=== PATIENT | female | born 1970 | race Caucasian/White ===

== ENCOUNTER → 2023-10-11 08:24 | Outpatient (REF) | payer BC, SELFPAY | LOC: HWRAD 08:24 | PROVIDERS: ATTENDING PHYSICIAN Internal Medicine Rheumatology; FAMILY PHYSICIAN Internal Medicine | DX: M06.9 Rheumatoid arthritis, unspecified (principal) | CPT/HCPCS: 73110; 73130 ==

== ENCOUNTER → 2023-11-19 09:26 | Outpatient (REF) | payer BC, SELFPAY | LOC: HWRAD 09:26 | PROVIDERS: ATTENDING PHYSICIAN Internal Medicine Rheumatology; FAMILY PHYSICIAN Internal Medicine | DX: M25.561 Pain in right knee (principal); R05.9 Cough, unspecified | CPT/HCPCS: 71046; 73560 ==

== ENCOUNTER → 2024-02-10 06:40 | Day surgery (SDC) | payer BC, SELFPAY | LOC: GI 06:40 | PROVIDERS: ATTENDING PHYSICIAN Internal Medicine | DX: R19.7 Diarrhea, unspecified (principal); D12.6 Benign neoplasm of colon, unspecified; K22.4 Dyskinesia of esophagus; K44.9 Diaphragmatic hernia without obstruction or gangrene; R13.14 Dysphagia, pharyngoesophageal phase | CPT/HCPCS: 45380; 43239; 88305 ==

== ENCOUNTER → 2024-02-14 08:09 | Outpatient (REF) | payer BC, SELFPAY | LOC: HWRAD 08:09 | PROVIDERS: ATTENDING PHYSICIAN Internal Medicine Rheumatology; FAMILY PHYSICIAN Internal Medicine | DX: M54.2 Cervicalgia (principal) | CPT/HCPCS: 72052 ==

== ENCOUNTER 2024-04-06 06:29 | Day surgery (SDC) | payer BC, SELFPAY ==
[2024-04-06 11:45] VITALS: BP 115/77; BMI 21.2
[2024-04-06 12:05] VITALS: BMI 21.2
[2024-04-06 15:16] VITALS: BP 91/67
[2024-04-06 15:30] VITALS: BP 118/82
[2024-04-06 15:46] VITALS: BP 108/78
== END 2024-04-06 16:00 | disposition home or self-care (01) ==
LOC: GI 06:29
PROVIDERS: ATTENDING PHYSICIAN Internal Medicine Gastroenterology
DX: D12.7 Benign neoplasm of rectosigmoid junction (principal); K64.0 First degree hemorrhoids; D12.6 Benign neoplasm of colon, unspecified
CPT/HCPCS: 45349; 88305

== ENCOUNTER 2024-11-23 06:25 | Day surgery (SDC) | payer BC, SELFPAY | END 2024-11-23 15:08 | disposition home or self-care (01) | LOC: GI 06:25 | PROVIDERS: ATTENDING PHYSICIAN Internal Medicine | DX: Z12.11 Encounter for screening for malignant neoplasm of colon (principal); K63.89 Other specified diseases of intestine; Z86.0101 Personal history of adenomatous and serrated colon polyps; Z98.890 Other specified postprocedural states | CPT/HCPCS: 45331; 88305 ==

== ENCOUNTER → 2025-01-04 08:03 | Outpatient (REF) | payer BC, SELFPAY | LOC: HWRAD 08:03 | PROVIDERS: ATTENDING PHYSICIAN Internal Medicine Rheumatology; FAMILY PHYSICIAN Internal Medicine | DX: M54.9 Dorsalgia, unspecified (principal) | CPT/HCPCS: 72072 ==